=== PATIENT | male | born 1960 ===

== ENCOUNTER 2017-10-03 05:32 | Observation (INO) | payer OTHER ==
[2017-10-03 05:41] VITALS: BMI 27.1
[2017-10-03] MEDS ORDERED: Sodium Chloride 0.9% 1,000 ML IV STA (05:52)
[2017-10-03 05:54] LABS: BASO # 0.01 K/mm3 (0.0-2.0); BASO % 0.1 % (0.0-3.0); EOS # 0.2 (0.0-0.7); GRAN # 6.29 (1.4-6.5); GRAN % 80.5 % (50.0-68.0); HEMOGLOBIN 13.2 g/dL (14.0-18.0); LYMPH # 0.9 (1.2-3.4); MEAN CELL VOLUME 88.5 fl (80.0-105.0); MEAN CORPUSCULAR HEMOGLOBIN 29.9 pg (25.0-35.0); MEAN CORPUSCULAR HGB CONC 33.8 g/dl (31.0-37.0); MEAN PLATELET VOLUME 9.2 fl (7.0-11.0); MONO # 0.5 (0.1-0.6); MONO % 6.4 % (1.0-6.0); RBC 4.42 10^6/uL (3.5-6.1); WHITE BLOOD COUNT 7.8 10^3/ul (4.5-11.0)
[2017-10-03 06:05] LABS: ALB/GLOB RATIO 1.6 (1.1-1.8); ALBUMIN 4.6 g/dL (3.0-4.8); ALT/SGPT 66 U/L (7-56); AST/SGOT 35 U/L (17-59); BLOOD UREA NITROGEN 12 mg/dL (7-21); CALCIUM 9.9 mg/dL (8.4-10.5); GFR AFRICAN-AMERICAN > 60; GFR NON-AFRICAN AMERICAN > 60
[2017-10-03 06:07] LABS: INR 0.97 (0.93-1.08); PROTHROMBIN TIME 11.1 SECONDS (9.4-12.5)
[2017-10-03 06:08] LABS: PARTIAL THROMBOPLASTIN TIME 27.8 Seconds (25.1-36.5)
--- NOTE | 2017-10-03 06:17 | ED PDOC ---
Arrival/HPI - General Chief Complaint: Chest Pain Time Seen by Provider: 10/03/17 05:45 Historian: Patient, Other (significant other) - History of Present Illness Narrative History of Present Illness (Text): 57yoM, with left sided chest pain, going down arm, woke him up, w associated headache, but no n/v/dizziness/sob/abdomen pain/numbness/tingling/loss of limb function/travel/prior blood clots/prior cancer history/drug use. 10/03/17 06:14 Time/Duration: 4-6 hours Symptom Onset: Sudden Symptom Course: Unchanged Quality: Aching Activities at Onset: Rest Context: Sitting Past Medical History - Provider Review Nursing Documentation Reviewed: Yes - Travel History Have you recently traveled outside [place] w/in the past 3 mons?: No - Infectious Disease Hx of Infectious Diseases: None - Tetanus Immunization Tetanus Immunization: Unknown - Cardiac Hx Cardiac Disorders: Yes Hx Hypertension: Yes - Pulmonary Hx Respiratory Disorders: No - Neurological Hx Neurological Disorder: No - HEENT Hx HEENT Disorder: No - Renal Hx Renal Disorder: No - Endocrine/Metabolic Hx Endocrine Disorders: No - Hematological/Oncological Hx Blood Disorders: No - Integumentary Hx Dermatological Disorder: No - Musculoskeletal/Rheumatological Hx Musculoskeletal Disorders: No Hx Falls: No - Gastrointestinal Hx Gastrointestinal Disorders: No - Genitourinary/Gynecological Hx Genitourinary Disorders: No - Psychiatric Hx Psychophysiologic Disorder: No Hx Substance Use: No - Surgical History Hx Appendectomy: Yes Other/Comment: vasectomy - Anesthesia Hx Anesthesia Reactions: No Hx Malignant Hyperthermia: No - Suicidal Assessment Feels Threatened In Home Enviroment: No Family/Social History - Physician Review Nursing Documentation Reviewed: Yes Family/Social History: No Known Family HX Smoking Status: Heavy Smoker > 10 Cigarettes Daily Hx Alcohol Use: No Hx Substance Use: No Hx Substance Use Treatment: No Allergies/Home Meds Allergies/Adverse Reactions: Allergies No Known Allergies Allergy (Verified 11/27/15 11:23) Home Medications: Home Meds Medication Instructions Recorded Confirmed Benazepril HCl [Lotensin] 40 mg PO DAILY 04/28/14 10/03/17 Hydrochlorothiazide [HCTZ] 12.5 mg PO DAILY 11/27/15 10/03/17 amLODIPine [Norvasc] 10 mg PO DAILY 11/27/15 10/03/17 Review of Systems - Review of Systems Constitutional: Normal Eyes: Normal ENT: Normal Respiratory: Normal Cardiovascular: Chest Pain Gastrointestinal: Normal Genitourinary Male: Normal Musculoskeletal: Normal Skin: Normal Neurological: Headache Endocrine: Normal Hemo/Lymphatic: Normal Psychiatric: Normal Physical Exam Vital Signs Reviewed: Yes Vital Signs Temp Pulse Resp BP Pulse Ox 10/03/17 07:13 89 12 149/87 95 10/03/17 06:12 100.7 F H 10/03/17 05:43 100.7 F H 10/03/17 05:38 92 H 16 148/103 H 95 Temperature: Febrile Blood Pressure: Hypertensive Pulse: Regular Respiratory Rate: Normal Appearance: Positive for: Uncomfortable Pain Distress: None Mental Status: Positive for: Alert and Oriented X 3 - Systems Exam Head: Present: Atraumatic, Normocephalic Pupils: Present: PERRL Extroacular Muscles: Present: EOMI Conjunctiva: Present: Normal Ears: Present: Normal Mouth: Present: Moist Mucous Membranes Pharnyx: Present: Normal Nose (External): Present: Atraumatic Nose (Internal): Present: Normal Inspection Neck: Present: Normal Range of Motion Respiratory/Chest: Present: Clear to Auscultation, Good Air Exchange Cardiovascular: Present: Regular Rate and Rhythm Abdomen: No: Tenderness, Distention, Normal Bowel Sounds, Peritoneal Signs, Rebound, Guarding, McBurney's Point Tender, Rovsing's Sign Present, Hernias, Feeding Tubes, Ostomy Tubes, Mass/Organomegaly, Scars, Other Back: Present: Normal Inspection Upper Extremity: Present: Normal Inspection Lower Extremity: Present: Normal Inspection Neurological: Present: GCS=15, CN II-XII Intact, Speech Normal, Motor Func Grossly Intact Skin: Present: Warm, Normal Color Psychiatric: Present: Alert, Oriented x 3, Normal Insight, Normal Concentration Medical Decision Making ED Course and Treatment: 57yoM, with left sided chest pain, going down arm, woke him up, w associated headache, but no n/v/dizziness/sob/abdomen pain/numbness/tingling/loss of limb function/travel/prior blood clots/prior cancer history/drug use. Trop 0.02 CXR no acute 10/03/17 06:16 10/03/17 06:29 10/03/17 07:15 aspirin 243 given with improvement. 100.7 temp tylenol given. ivf pt gave errant PMD in computer. signed out to Dr. Quintero to fu with hospitalist regarding observation/ admission for chest pain rule out. - Lab Interpretations Lab Results: 10/03/17 05:35 10/03/17 05:35 Lab Results 10/03/17 06:00: Influenza Typ A,B (EIA) Negative for flu a/b 10/03/17 05:35: Sodium 141, Potassium 4.0, Chloride 103, Carbon Dioxide 24, Anion Gap 18, BUN 12, Creatinine 0.8, Est GFR ( Amer) > 60, Est GFR (Non- Af Amer) > 60, Random Glucose 106, Calcium 9.9, Total Bilirubin 0.3, AST 35, ALT 66 H, Alkaline Phosphatase 61, Lactate Dehydrogenase 376, Total Creatine Kinase 135, Troponin I 0.02 D, Total Protein 7.4, Albumin 4.6, Globulin 2.9, Albumin/Globulin Ratio 1.6 10/03/17 05:35: PT 11.1, INR 0.97, APTT 27.8 10/03/17 05:35: WBC 7.8 D, RBC 4.42, Hgb 13.2 L, Hct 39.1 L, MCV 88.5, MCH 29.9 , MCHC 33.8, RDW 15.0 H, Plt Count 242, MPV 9.2, Gran % 80.5 H, Lymph % (Auto) 11.0 L, [place] % (Auto) 6.4 H, Eos % (Auto) 2.0, Baso % (Auto) 0.1, Gran # 6.29, Lymph # (Auto) 0.9 L, [place] # (Auto) 0.5, Eos # (Auto) 0.2, Baso # (Auto) 0.01 I have reviewed the lab results: Yes - RAD Interpretation Radiology Orders: 10/03/17 05:43 CHEST PORTABLE [RAD] Stat Nude Model: ED Physician (CXR mild vascular markings) - EKG Interpretation Interpreted by ED Physician: Yes (sinus tachycardia) Type: 12 lead EKG - Medication Orders Current Medication Orders: Discontinued Medications Acetaminophen (Tylenol 325mg Tab) 975 mg PO STAT STA Stop: 10/03/17 05:53 Last Admin: 10/03/17 06:12 Dose: 975 mg MAR Pain/Vitals Document 10/03/17 06:12 SRINIVAS (Rec: 10/03/17 06:13 GUTHRIE [id number]) Pain Reassessment Is This A Pain ReAssessment? No Sleep Is patient sleeping during reassessment? No Presence of Pain Presence of Pain Yes Pain Scale Used Pain Scale Used Numeric Location Left, Right or Bilateral Right Upper or Lower Upper Pain Location Body Site Arm Intensity 5 Vitals Temperature (97.6 F-99.6 F) 100.7 F Temperature Source Oral Aspirin (Aspirin Chewable) 243 mg PO STAT STA Stop: 10/03/17 05:52 Last Admin: 10/03/17 06:13 Dose: 243 mg Sodium Chloride (Sodium Chloride 0.9%) 1,000 mls @ 999 mls/hr IV .Q1H1M STA Stop: 10/03/17 06:52 Last Admin: 10/03/17 06:12 Dose: 999 mls/hr eMAR Start Stop Document 10/03/17 06:12 ROMANA (Rec: 10/03/17 06:12 [facility] [id number]) Intravenous Solution Start Date 10/03/17 Start Time 06:12 End Date 10/03/17 End time 07:12 Total Infusion Time 60 Disposition/Present on Arrival - Present on Arrival History of DVT/PE: No History of Uncontrolled Diabetes: No Urinary Catheter: No History of Decub. Ulcer: No History Surgical Site Infection Following: None - Disposition Forms: [employer] (Swedish)
[2017-10-03 06:18] LABS: TROPONIN I 0.02 ng/mL
--- NOTE | 2017-10-03 08:04 | ED PDOC ---
Physical Exam Vital Signs Temp Pulse Resp BP Pulse Ox 10/03/17 07:13 89 12 149/87 95 10/03/17 06:12 100.7 F H 10/03/17 05:43 100.7 F H 10/03/17 05:38 92 H 16 148/103 H 95 Medical Decision Making ED Course and Treatment: 10/03/17 07:00 Case signed out to me by Dr. Abreu. Patient is a 57 year old male, whose PMH include hypertensio who presents to the emergency department complaining of chest pain since last night at 2AM that radiates to the left arm. Labs were normal, but patient is febrile. The plan is to admit patient. 10/03/17 08:[address] Norman who will admit patient under his care to Telemetry for chest pain r/o. - Lab Interpretations Lab Results: 10/03/17 05:35 10/03/17 05:35 Lab Results 10/03/17 06:00: Influenza Typ A,B (EIA) Negative for flu a/b 10/03/17 05:35: Sodium 141, Potassium 4.0, Chloride 103, Carbon Dioxide 24, Anion Gap 18, BUN 12, Creatinine 0.8, Est GFR ( Amer) > 60, Est GFR (Non- Af Amer) > 60, Random Glucose 106, Calcium 9.9, Total Bilirubin 0.3, AST 35, ALT 66 H, Alkaline Phosphatase 61, Lactate Dehydrogenase 376, Total Creatine Kinase 135, Troponin I 0.02 D, Total Protein 7.4, Albumin 4.6, Globulin 2.9, Albumin/Globulin Ratio 1.6 10/03/17 05:35: PT 11.1, INR 0.97, APTT 27.8 10/03/17 05:35: WBC 7.8 D, RBC 4.42, Hgb 13.2 L, Hct 39.1 L, MCV 88.5, MCH 29.9 , MCHC 33.8, RDW 15.0 H, Plt Count 242, MPV 9.2, Gran % 80.5 H, Lymph % (Auto) 11.0 L, [place] % (Auto) 6.4 H, Eos % (Auto) 2.0, Baso % (Auto) 0.1, Gran # 6.29, Lymph # (Auto) 0.9 L, [place] # (Auto) 0.5, Eos # (Auto) 0.2, Baso # (Auto) 0.01 - RAD Interpretation Radiology Orders: 10/03/17 05:43 CHEST PORTABLE [RAD] Stat - Medication Orders Current Medication Orders: Discontinued Medications Acetaminophen (Tylenol 325mg Tab) 975 mg PO STAT STA Stop: 10/03/17 05:53 Last Admin: 10/03/17 06:12 Dose: 975 mg MAR Pain/Vitals Document 10/03/17 06:12 JOL (Rec: 10/03/17 06:13 JOL [id number]) Pain Reassessment Is This A Pain ReAssessment? No Sleep Is patient sleeping during reassessment? No Presence of Pain Presence of Pain Yes Pain Scale Used Pain Scale Used Numeric Location Left, Right or Bilateral Right Upper or Lower Upper Pain Location Body Site Arm Intensity 5 Vitals Temperature (97.6 F-99.6 F) 100.7 F Temperature Source Oral Aspirin (Aspirin Chewable) 243 mg PO STAT STA Stop: 10/03/17 05:52 Last Admin: 10/03/17 06:13 Dose: 243 mg Sodium Chloride (Sodium Chloride 0.9%) 1,000 mls @ 999 mls/hr IV .Q1H1M STA Stop: 10/03/17 06:52 Last Admin: 10/03/17 06:12 Dose: 999 mls/hr eMAR Start Stop Document 10/03/17 06:12 JOL (Rec: 10/03/17 06:12 JOL [id number]) Intravenous Solution Start Date 10/03/17 Start Time 06:12 End Date 10/03/17 End time 07:12 Total Infusion Time 60 - Scribe Statement The provider has reviewed the documentation as recorded by the Serg Tamez Provider Scribe Attestation: All medical record entries made by the Scribe were at my direction and personally dictated by me. I have reviewed the chart and agree that the record accurately reflects my personal performance of the history, physical exam, medical decision making, and the department course for this patient. I have also personally directed, reviewed, and agree with the discharge instructions and disposition. Disposition/Present on Arrival - Present on Arrival Any Indicators Present on Arrival: No History of DVT/PE: No History of Uncontrolled Diabetes: No Urinary Catheter: No History of Decub. Ulcer: No History Surgical Site Infection Following: None - Disposition Have Diagnosis and Disposition been Completed?: Yes Diagnosis: Chest pain Disposition: HOSPITALIZED Disposition Time: 07:50 Patient Plan: Observation, Telemetry Condition: FAIR Discharge Instructions (ExitCare): Chest Pain (ED) Referrals: Sowmya Beebe MD [Primary Care Provider] - Follow up with primary Forms: [employer] (Austrian)
--- NOTE | 2017-10-03 09:56 | RAD ---
HISTORY: CHEST PAIN COMPARISON: 11/27/2015 FINDINGS: LUNGS: No active pulmonary disease. PLEURA: No significant pleural effusion identified, no pneumothorax apparent. CARDIOVASCULAR: No radiographic findings to suggest acute or significant cardiovascular disease. OSSEOUS STRUCTURES: No significant abnormalities. VISUALIZED UPPER ABDOMEN: Normal. OTHER FINDINGS: None. IMPRESSION: No active disease. No significant interval change compared to the prior examination(s).
[2017-10-03 10:18] LABS: PH,URINE 7.5 (4.7-8.0); URINE BILIRUBIN NEGATIVE (NEGATIVE); URINE BLOOD SMALL (NEGATIVE); URINE GLUCOSE (UA) NEGATIVE (NEGATIVE); URINE LEUKOCYTE ESTERASE NEGATIVE Leu/uL (NEGATIVE); URINE NITRATE NEGATIVE (NEGATIVE); URINE PROTEIN NEGATIVE mg/dL (<30 mg/dL); URINE UROBILINOGEN 0.2 E.U./dL (<1 E.U./dL)
[2017-10-03] MEDS: levoFLOXacin 500 mg in D5W 500 MG/100 ML BAG IVPB SCH (10:20)
[2017-10-03 10:22] LABS: HDL CHOLESTEROL 51 mg/dL (29-60)
[2017-10-03 10:26] LABS: URINE APPEARANCE CLEAR (CLEAR); URINE COLOR YELLOW (YELLOW)
[2017-10-03 10:30] LABS: BARBITURATES, UR NEGATIVE (NEGATIVE); BENZODIAZEPINES, UR NEGATIVE (NEGATIVE); OPIATES, UR NEGATIVE (NEGATIVE); PHENCYCLIDINE, UR NEGATIVE (NEGATIVE)
[2017-10-03 10:36] LABS: LDL CHOLESTEROL 94 mg/dL (0-129)
[2017-10-03 10:41] LABS: URINE WBC 0 - 2 /hpf (0-6)
[2017-10-03 10:42] LABS: URINE BACTERIA FEW (NEG)
[2017-10-03] MEDS: Albuterol-Ipratrop 3 mg / 0.5 (3 ml) UD IH SCH (14:00)
--- NOTE | 2017-10-03 16:41 | CARD ---
APPROVED REPORT EKG Measurement Heart [id number] <Conclusion> Sinus tachycardia Possible Left atrial enlargement Borderline ECG
[2017-10-03] MEDS ORDERED: Pantoprazole 40 mg EC Tab PO STA (21:15)
[2017-10-03] MEDS ORDERED: Pneumococcal 23-Valent Vaccine IM ONE (21:35)
[2017-10-03] MEDS ORDERED: Influenza Vaccine 60 mcg/0.5 mL SYR (4YR UP) IM ONE (21:35)
--- NOTE | 2017-10-04 02:09 | CON ---
DATE: CARDIOLOGY CONSULTATION REASON FOR CONSULTATION: Chest pain. HISTORY OF PRESENT ILLNESS: The patient is a 57-year-old male, who has a history of hypertension. He is a former smoker, who quit about 4 months ago. He smoked 10 cigarettes a day. He presents because of retrosternal chest heaviness radiating to the left arm and to the left jaw. The patient is unaware of any prior cardiac history except for history of hypertension and underwent a stress test many years ago that was unremarkable. At this time, the patient is chest pain free. MEDICATIONS: Aspirin 81 mg once a day, Levaquin 500 mg intravenously daily, hydrochlorothiazide 12.5 mg once a day, Norvasc 10 mg once a day, Protonix 40 mg once a day, Zestril 40 mg once a day. REVIEW OF SYSTEMS: No fever or chills. No vomiting or diarrhea. No dizziness or syncope. PHYSICAL EXAMINATION: GENERAL: The patient is a middle-aged male, who does not appear to be in any distress. VITAL SIGNS: Blood pressure 132/92, heart rate 81, temperature 100.7 initially. HEENT: Normocephalic. NECK: No JVD. CHEST: Clear. HEART: S1, S2, regular. ABDOMEN: Soft. EXTREMITIES: No edema. No calf tenderness. LABORATORY DATA: Hemoglobin and hematocrit 16.1 and 39.1, white count and platelet counts are within normal limit. SMA-7: Sodium 141, potassium 4, chloride 106, CO2 of 24, glucose 106, BUN 12, creatinine 0.8. Two sets of troponin are in the indeterminate range. Lipid profile is within normal limit. PT, PTT and D-dimer are within normal limits. Urine drug screen is negative. EKG reveal normal sinus rhythm, left atrial enlargement. ASSESSMENT: 1. Chest pain, rule out myocardial infarction. 2. Hypertension. 3. Low-grade fever. chest x-ray was unremarkable. RECOMMENDATIONS: Continue current aspirin 81 mg once a day, hydrochlorothiazide 12.5 mg daily, Norvasc 10 mg once a day, Zestril at 40 mg once a day. Obtain an echocardiograph study and consider blood culture. Jacinto Betancourt MD
[2017-10-04] MEDS: Albuterol-Ipratrop 3 mg / 0.5 (3 ml) UD IH SCH ×5 (04:00→21:11)
[2017-10-04] MEDS: Pantoprazole 40 mg EC Tab PO SCH (05:23)
[2017-10-04 07:33] LABS: BASO # 0.01 K/mm3 (0.0-2.0); BASO % 0.2 % (0.0-3.0); EOS # 0.2 (0.0-0.7); EOS % 4.6 % (1.5-5.0); GRAN # 3.56 (1.4-6.5); GRAN % 67.6 % (50.0-68.0); HEMOGLOBIN 12.3 g/dL (14.0-18.0); LYMPH # 0.8 (1.2-3.4); MEAN CELL VOLUME 87.9 fl (80.0-105.0); MEAN CORPUSCULAR HEMOGLOBIN 29.2 pg (25.0-35.0); MEAN CORPUSCULAR HGB CONC 33.2 g/dl (31.0-37.0); MEAN PLATELET VOLUME 9.2 fl (7.0-11.0); MONO # 0.6 (0.1-0.6); MONO % 11.6 % (1.0-6.0); RBC 4.21 10^6/uL (3.5-6.1); WHITE BLOOD COUNT 5.3 10^3/ul (4.5-11.0)
[2017-10-04 07:39] LABS: ALB/GLOB RATIO 1.4 (1.1-1.8); ALBUMIN 3.9 g/dL (3.0-4.8); ALT/SGPT 65 U/L (7-56); AST/SGOT 33 U/L (17-59); BLOOD UREA NITROGEN 12 mg/dL (7-21); CALCIUM 9.5 mg/dL (8.4-10.5); GFR AFRICAN-AMERICAN > 60; GFR NON-AFRICAN AMERICAN > 60
[2017-10-04] MEDS ORDERED: Potassium Chloride 20 mEq ER Tab PO STA (09:12)
--- NOTE | 2017-10-04 09:26 | CP.PCM.HP ---
<Manav Belcher - Last Filed: 10/04/17 11:57> History of Present Illness - History of Present Illness History of Present Illness: Mr. Efren Hinojosa is a 57 year old male with a past medical history significant for HTN, GERD, tobacco abuse and appendectomy who presents with sharp left sided chest pain that radiates to his left arm and left neck that awoke him from sleep at approximately 0230 this morning. He states that this pain was constant and was rated as a 10/10. He denies any alleviating or aggravating factors. He has had this pain in the past but denies it ever being this severe. Patient endorses that he has been suffering from subjective fevers and nasal congestion for approximately one month and notes that he had an acute worsening of these symptoms last night before he went to bed, for which he denies taking any medications for. Currently, patient reports that his presenting chest pain has resolved and that he only experiences this pain on deep breathing. He denies chills, changes in his vision, sore throat, palpitations, SOB, cough, abdominal pain, N/V/D/C, urinary symptoms, skin changes or any numbness/tingling /weakness of any extremity. 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 Allergies: NKDA Home Medications: As per MAR Present on Admission - Present on Admission Any Indicators Present on Admission: No Review of Systems - Review of Systems Review of Systems: As per HPI, otherwise negative Past Patient History - Infectious Disease Hx of Infectious Diseases: None - Tetanus Immunizations Tetanus Immunization: Unknown - Past Social History Smoking Status: Former Smoker - CARDIAC Hx Cardiac Disorders: Yes Hx Hypertension: Yes - PULMONARY Hx Respiratory Disorders: No - NEUROLOGICAL Hx Neurological Disorder: No - HEENT Hx HEENT Problems: Yes (eyeglasses) - RENAL Hx Chronic Kidney Disease: No - ENDOCRINE/METABOLIC Hx Endocrine Disorders: No - HEMATOLOGICAL/ONCOLOGICAL Hx Blood Disorders: No - INTEGUMENTARY Hx Dermatological Problems: No - MUSCULOSKELETAL/RHEUMATOLOGICAL Hx Falls: No - GASTROINTESTINAL Hx Gastroesophageal Reflux: Yes - GENITOURINARY/GYNECOLOGICAL Hx Genitourinary Disorders: No - PSYCHIATRIC Hx Substance Use: No - SURGICAL HISTORY Hx Appendectomy: Yes (15 yrs ago) Other/Comment: vasectomy, r kidney sx age 1 - ANESTHESIA Hx Anesthesia Reactions: No Hx Malignant Hyperthermia: No Meds Allergies/Adverse Reactions: Allergies Allergy/AdvReac Type Severity Reaction Status Date / Time No Known Allergies Allergy Verified 11/27/15 11:23 Physical Exam - Constitutional Appears: Non-toxic, No Acute Distress - Head Exam Head Exam: ATRAUMATIC, NORMAL INSPECTION, NORMOCEPHALIC - Eye Exam Eye Exam: EOMI, Normal appearance, PERRL - ENT Exam ENT Exam: Mucous Membranes Moist, Normal Exam - Neck Exam Neck exam: Positive for: Full Rom, Normal Inspection. Negative for: Lymphadenopathy - Respiratory Exam Respiratory Exam: Wheezes (Fine; End expiratory; Upper lung clark), NORMAL BREATHING PATTERN. absent: Accessory Muscle Use, Chest Wall Tenderness, Decreased Breath Sounds, Clear to Auscultation Bilateral, Prolonged Expiratory Phase, Rales, Rhonchi, Respiratory Distress, Stridor - Cardiovascular Exam Cardiovascular Exam: REGULAR RHYTHM, RRR, +S1, +S2. absent: Bradycardia, Tachycardia, Clicks, Diastolic murmur, Gallop, Irregular Rhythm, JVD, Rubs, +S4 , Systolic Murmur - GI/Abdominal Exam GI & Abdominal Exam: Normal Bowel Sounds, Soft. absent: Tenderness - Extremities Exam Extremities exam: Positive for: full ROM, normal capillary refill, normal inspection, pedal pulses present. Negative for: calf tenderness, joint swelling , pedal edema, tenderness - Back Exam Back exam: NORMAL INSPECTION - Neurological Exam Neurological exam: Alert, CN II-XII Intact, Normal Gait, Oriented x3, Reflexes Normal - Psychiatric Exam Psychiatric exam: Normal Affect, Normal Mood - Skin Skin Exam: Dry, Intact, Normal Color, Warm Results - Vital Signs Recent Vital Signs: Last Vital Signs Temp 99.5 F 10/04/17 05:59 Pulse 89 10/04/17 06:00 Resp 18 10/04/17 05:59 BP 137/91 H 10/04/17 05:59 Pulse Ox 96 10/04/17 05:59 - Labs Result Diagrams: 10/04/17 07:00 10/04/17 07:00 Labs: Laboratory Results - last 24 hr 10/03/17 10/03/17 10/03/17 09:00 11:30 18:05 WBC RBC Hgb Hct MCV MCH MCHC RDW Plt Count MPV Gran % Lymph % (Auto) [place] % (Auto) Eos % (Auto) Baso % (Auto) Gran # Lymph # (Auto) [place] # (Auto) Eos # (Auto) Baso # (Auto) Sodium Potassium Chloride Carbon Dioxide Anion Gap BUN Creatinine Est GFR ( Amer) Est GFR (Non-Af Amer) Random Glucose Calcium Total Bilirubin AST ALT Alkaline Phosphatase Troponin I 0.01 D 0.02 D Total Protein Albumin Globulin Albumin/Globulin Ratio Procalcitonin 0.06 L 10/04/17 10/04/17 07:00 07:00 WBC 5.3 D RBC 4.21 Hgb 12.3 L Hct 37.0 L MCV 87.9 MCH 29.2 MCHC 33.2 RDW 15.0 H Plt Count 215 MPV 9.2 Gran % 67.6 Lymph % (Auto) 16.0 L [place] % (Auto) 11.6 H Eos % (Auto) 4.6 Baso % (Auto) 0.2 Gran # 3.56 Lymph # (Auto) 0.8 L [place] # (Auto) 0.6 Eos # (Auto) 0.2 Baso # (Auto) 0.01 Sodium 140 Potassium 3.4 L Chloride 104 Carbon Dioxide 25 Anion Gap 14 BUN 12 Creatinine 0.8 Est GFR ( Amer) > 60 Est GFR (Non-Af Amer) > 60 Random Glucose 98 Calcium 9.5 Total Bilirubin 0.2 AST 33 ALT 65 H Alkaline Phosphatase 57 Troponin I Total Protein 6.7 Albumin 3.9 Globulin 2.8 Albumin/Globulin Ratio 1.4 Procalcitonin - EKG Data Rate: Tachycardia (101) Assessment & Plan - Assessment and Plan (Free Text) Assessment: 57 year old male with a past medical history significant for HTN, GERD, tobacco abuse and appendectomy who presents with sharp left sided chest pain that radiates to his left arm and left neck that awoke him from sleep at approximately 0230 this morning Plan: 1. Chest Pain -Chest X-Ray showing no active disease -EKG showing sinus tachycardia and possible LAE -Initial troponin negative with serial troponins pending -D-Dimer negative -UDS negative -Echo pending -Continue ASA -Toradol 15mg IM Q6 PRN for pain control -Heart Healthy Diet -Cardiology consulted, all recommendations appreciated 2. SIRS without suspected source -Noted to have fever and tachycardia without leukocytosis or tachypnea -Chest X-Ray and UA showing no signs of infection -Influenza negative -Levaquin 500mg IVPB QD -Duonebs Q6H and Albuterol INH Q2H PRN -Tylenol PRN for fever 3. History of HTN -Continue home Zestril, Norvasc, and HCTZ GI Prophylaxis: Protonix DVT Prophylaxis: SCD's Patient seen and case discussed with attending, Dr. Norman. - Date & Time Date: 10/03/17 Time: 10:38 Decision To Admit - Pt Status Changed To: Hospital Disposition Of: Observation - . Bed Request Type: Telemetry <Magnolia Norman - Last Filed: 10/04/17 15:14> Results - Vital Signs Recent Vital Signs: Last Vital Signs Temp 98.5 F 10/04/17 12:00 Pulse 85 10/04/17 14:27 Resp 18 10/04/17 12:00 BP 137/51 L 10/04/17 14:27 Pulse Ox 96 10/04/17 05:59 - Labs Result Diagrams: 10/04/17 07:00 10/04/17 07:00 Labs: Laboratory Results - last 24 hr 10/03/17 10/03/17 10/03/17 09:00 09:00 18:05 WBC RBC Hgb Hct MCV MCH MCHC RDW Plt Count MPV Gran % Lymph % (Auto) [place] % (Auto) Eos % (Auto) Baso % (Auto) Gran # Lymph # (Auto) [place] # (Auto) Eos # (Auto) Baso # (Auto) Sodium Potassium Chloride Carbon Dioxide Anion Gap BUN Creatinine Est GFR ( Amer) Est GFR (Non-Af Amer) Random Glucose Hemoglobin A1c 5.9 Calcium Total Bilirubin AST ALT Alkaline Phosphatase Troponin I 0.02 D Total Protein Albumin Globulin Albumin/Globulin Ratio Procalcitonin 0.06 L 10/04/17 10/04/17 07:00 07:00 WBC 5.3 D RBC 4.21 Hgb 12.3 L Hct 37.0 L MCV 87.9 MCH 29.2 MCHC 33.2 RDW 15.0 H Plt Count 215 MPV 9.2 Gran % 67.6 Lymph % (Auto) 16.0 L [place] % (Auto) 11.6 H Eos % (Auto) 4.6 Baso % (Auto) 0.2 Gran # 3.56 Lymph # (Auto) 0.8 L [place] # (Auto) 0.6 Eos # (Auto) 0.2 Baso # (Auto) 0.01 Sodium 140 Potassium 3.4 L Chloride 104 Carbon Dioxide 25 Anion Gap 14 BUN 12 Creatinine 0.8 Est GFR ( Amer) > 60 Est GFR (Non-Af Amer) > 60 Random Glucose 98 Hemoglobin A1c Calcium 9.5 Total Bilirubin 0.2 AST 33 ALT 65 H Alkaline Phosphatase 57 Troponin I Total Protein 6.7 Albumin 3.9 Globulin 2.8 Albumin/Globulin Ratio 1.4 Procalcitonin Attending/Attestation - Attestation I have personally seen and examined this patient.: Yes I have fully participated in the care of the patient.: Yes I have reviewed all pertinent clinical information: Yes Notes (Text): 10/04/17 15:10 Patient was seen and examined with family practice medical doctor. Agreed with assessment and plan. 57 year old male with a past medical history significant for HTN, GERD, is admitted with chest pain.EKG is negative for ischemic changes.We will get serial troponin.We will monitor patient in telemetry.We will get cardiology evaluation. Fever is likely dueto Bronchitis, X ray is negative for Pneumonia.We will check Procalcitonin level.Continue levaquin. Management plan was discussed in detail with patient. Education was provided.
[2017-10-04] MEDS: levoFLOXacin 500 mg in D5W 500 MG/100 ML BAG IVPB SCH (10:13)
[2017-10-04] MEDS ORDERED: Albuterol 0.083% Inhal Sol (2.5 mg/3 mL) UD INH PRN (11:05)
--- NOTE | 2017-10-04 14:37 | CP.PCM.PN ---
<Manav Belcher - Last Filed: 10/04/17 14:33> Subjective - Date & Time of Evaluation Date of Evaluation: 10/04/17 Time of Evaluation: 14:33 - Subjective Subjective: Medicine Progress Note: Patient seen and assessed at bedside. No acute events since admission reported by nursing staff or patient. Patient is without complaints at this time, including fever, chills, headache, chest pain, palpitations, SOB, cough, abdominal pain, N/V/D/C, urinary symptoms, or any numbness/tingling/weakness of any extremity. Objective - Vital Signs/Intake and Output Vital Signs (last 24 hours): Temp Pulse Resp BP Pulse Ox 98.5 F 85 18 137/51 L 96 10/04/17 12:00 10/04/17 14:27 10/04/17 12:00 10/04/17 14:27 10/04/17 05:59 Intake and Output: 10/04/17 10/04/17 06:59 18:59 Intake Total 120 Output Total 0 Balance 120 - Medications Medications: Current Medications Acetaminophen (Tylenol 325mg Tab) 650 mg PO Q6H PRN PRN Reason: Fever >100.4 F Last Admin: 10/04/17 03:15 Dose: 650 mg Albuterol Sulfate (Albuterol 0.083% Inhal Mel (2.5 Mg/3 Ml) Ud) 2.5 mg INH Q2H PRN PRN Reason: Shortness of Breath Last Admin: 10/04/17 11:18 Dose: 2.5 mg Albuterol/Ipratropium (Duoneb 3 Mg/0.5 Mg (3 Ml) Ud) 3 ml IH [id number] [facility] Last Admin: 10/04/17 14:04 Dose: 3 ml Amlodipine Besylate (Norvasc) 10 mg PO DAILY [facility] Last Admin: 10/04/17 10:13 Dose: 10 mg Aspirin (Aspirin Chewable) 81 mg PO DAILY [facility] Last Admin: 10/04/17 10:13 Dose: 81 mg Atenolol (Tenormin) 25 mg PO DAILY [facility] Last Admin: 10/04/17 14:27 Dose: 25 mg Hydrochlorothiazide (Microzide) 12.5 mg PO DAILY [facility] Last Admin: 10/04/17 10:13 Dose: 12.5 mg Levofloxacin/Dextrose (Levaquin 500mg) 500 mg in 100 mls @ 100 mls/hr IVPB DAILY RICHIE PRN Reason: Protocol Last Admin: 10/04/17 10:13 Dose: 100 mls/hr Ketorolac Tromethamine (Toradol) 15 mg IM Q6 PRN PRN Reason: Pain, Mild (1-3) Stop: 10/08/17 18:16 Lisinopril (Zestril) 40 mg PO DAILY [facility] Last Admin: 10/04/17 10:13 Dose: 40 mg Pantoprazole Sodium (Protonix Ec Tab) 40 mg PO 0600 [facility] Last Admin: 10/04/17 05:23 Dose: 40 mg - Labs Labs: 10/04/17 07:00 10/04/17 07:00 PT 11.1 SECONDS (9.4-12.5) 10/03/17 05:35 INR 0.97 (0.93-1.08) 10/03/17 05:35 APTT 27.8 Seconds (25.1-36.5) 10/03/17 05:35 - Constitutional Appears: Non-toxic, No Acute Distress - Head Exam Head Exam: ATRAUMATIC, NORMAL INSPECTION, NORMOCEPHALIC - Eye Exam Eye Exam: EOMI, Normal appearance, PERRL Pupil Exam: NORMAL ACCOMODATION, PERRL - ENT Exam ENT Exam: Mucous Membranes Moist, Normal Exam - Neck Exam Neck Exam: Full ROM, Normal Inspection. absent: Lymphadenopathy - Respiratory Exam Respiratory Exam: Wheezes (Trace; scattered in upper lobe clark), NORMAL BREATHING PATTERN. absent: Clear to Ausculation Bilateral - Cardiovascular Exam Cardiovascular Exam: REGULAR RHYTHM, +S1, +S2. absent: Murmur - GI/Abdominal Exam GI & Abdominal Exam: Soft, Normal Bowel Sounds. absent: Tenderness - Extremities Exam Extremities Exam: Full ROM, Normal Capillary Refill, Normal Inspection. absent : Joint Swelling, Pedal Edema - Back Exam Back Exam: NORMAL INSPECTION - Neurological Exam Neurological Exam: Alert, Awake, CN II-XII Intact, Normal Gait, Oriented x3 - Psychiatric Exam Psychiatric exam: Normal Affect, Normal Mood - Skin Skin Exam: Dry, Intact, Normal Color, Warm Assessment and Plan - Assessment and Plan (Free Text) Assessment: 57 year old male with a past medical history significant for HTN, GERD, tobacco abuse and appendectomy who presents with sharp left sided chest pain that radiates to his left arm and left neck that awoke him from sleep. Serial troponins were negative and patient improving clinically. Plan: 1. Chest Pain -Chest X-Ray showing no active disease -EKG showing sinus tachycardia and possible LAE -Three serial troponins negative -D-Dimer negative -UDS negative -Echo pending, per cardio -Continue ASA -Toradol 15mg IM Q6 PRN for pain control -Heart Healthy Diet -Cardiology consulted, all recommendations appreciated 2. SIRS without suspected source -Patient noted to have tachycardia without fever for 24 hours, leukocytosis or tachypnea -Chest X-Ray and UA showing no signs of infection -Influenza negative -Levaquin 500mg IVPB QD -Duonebs Q6H and Albuterol INH Q2H PRN -Tylenol PRN for fever 3. History of HTN -Continue home Zestril, Norvasc, and HCTZ GI Prophylaxis: Protonix DVT Prophylaxis: SCD's Patient seen and case discussed with attending, Dr. Norman. <Magnolia Norman - Last Filed: 10/04/17 15:18> Objective - Vital Signs/Intake and Output Vital Signs (last 24 hours): Temp Pulse Resp BP Pulse Ox 98.5 F 85 18 137/51 L 96 10/04/17 12:00 10/04/17 14:27 10/04/17 12:00 10/04/17 14:27 10/04/17 05:59 Intake and Output: 10/04/17 10/04/17 06:59 18:59 Intake Total 120 Output Total 0 Balance 120 - Medications Medications: Current Medications Acetaminophen (Tylenol 325mg Tab) 650 mg PO Q6H PRN PRN Reason: Fever >100.4 F Last Admin: 10/04/17 03:15 Dose: 650 mg Albuterol Sulfate (Albuterol 0.083% Inhal Mel (2.5 Mg/3 Ml) Ud) 2.5 mg INH Q2H PRN PRN Reason: Shortness of Breath Last Admin: 10/04/17 11:18 Dose: 2.5 mg Albuterol/Ipratropium (Duoneb 3 Mg/0.5 Mg (3 Ml) Ud) 3 ml IH [id number] RICHIE Last Admin: 10/04/17 14:04 Dose: 3 ml Amlodipine Besylate (Norvasc) 10 mg PO DAILY [facility] Last Admin: 10/04/17 10:13 Dose: 10 mg Aspirin (Aspirin Chewable) 81 mg PO DAILY [facility] Last Admin: 10/04/17 10:13 Dose: 81 mg Atenolol (Tenormin) 25 mg PO DAILY [facility] Last Admin: 10/04/17 14:27 Dose: 25 mg Hydrochlorothiazide (Microzide) 12.5 mg PO DAILY [facility] Last Admin: 10/04/17 10:13 Dose: 12.5 mg Levofloxacin/Dextrose (Levaquin 500mg) 500 mg in 100 mls @ 100 mls/hr IVPB DAILY [facility] PRN Reason: Protocol Last Admin: 10/04/17 10:13 Dose: 100 mls/hr Ketorolac Tromethamine (Toradol) 15 mg IM Q6 PRN PRN Reason: Pain, Mild (1-3) Stop: 10/08/17 18:16 Lisinopril (Zestril) 40 mg PO DAILY [facility] Last Admin: 10/04/17 10:13 Dose: 40 mg Pantoprazole Sodium (Protonix Ec Tab) 40 mg PO 0600 [facility] Last Admin: 10/04/17 05:23 Dose: 40 mg - Labs Labs: 10/04/17 07:00 10/04/17 07:00 PT 11.1 SECONDS (9.4-12.5) 10/03/17 05:35 INR 0.97 (0.93-1.08) 10/03/17 05:35 APTT 27.8 Seconds (25.1-36.5) 10/03/17 05:35 Attending/Attestation - Attestation I have personally seen and examined this patient.: Yes I have fully participated in the care of the patient.: Yes I have reviewed all pertinent clinical information, including history, physical exam and plan: Yes Notes (Text): 10/04/17 15:15 Patient was seen and examined with medical data analyst. Agreed with assessment and plan. 57 year old male with a past medical history significant for HTN, GERD, was admitted with chest pain.EKG is negative for ischemic changes.Serial troponin are normal.Patient was evaluated by cardiology and is aaiting for 2D echo, if no significant abnormality Echo, can be discharged home and will have out patient stress test.Case was discussed with cardiology . Fever is likely due to viral Bronchitis, X ray is negative for Pneumonia.Procalcitonin level is normal.Patient is feeling better, on PRB for mild wheezing. Management plan was discussed in detail with patient. Education was provided.
--- NOTE | 2017-10-04 19:45 | PN ---
DATE: CARDIOLOGY FOLLOWUP SUBJECTIVE: Patient denies any chest pain. He complains of shortness of breath. PHYSICAL EXAMINATION VITAL SIGNS: Blood pressure 140/89, heart rate 94, temperature 98.5, respirations 18. HEENT: Normocephalic. NECK: No JVD. CHEST: Clear. HEART: Sounds are regular. ABDOMEN: Soft. EXTREMITIES: No edema. LABORATORY DATA: Today's hemoglobin and hematocrit 12.3 and . White count and platelet count are within normal limit. Today's SMA-7 is within normal limits, except for potassium 3.4. Three sets of troponins are in indeterminate range. Urine drug screen is negative. Influenza type A and B serology is negative. Today's EKG reveal normal sinus rhythm. ASSESSMENT: 1. Atypical chest pain. 2. Uncontrolled hypertension. 3. Shortness of breath. RECOMMENDATIONS: Continue aspirin 81 mg once a day, Levaquin 500 mg daily, hydrochlorothiazide 12.5 mg once a day, Norvasc 10 mg once a day, Zestril 40 mg once a day. Start atenolol 25 mg once a day. Case was discussed with Dr. Norman. I will follow up the echocardiographic study scheduled to be done tomorrow. Jacinto Betancourt MD
--- NOTE | 2017-10-04 21:03 | CARD ---
APPROVED REPORT EKG Measurement Heart [id number] MA [id number] <Conclusion> Normal sinus rhythm Normal ECG
[2017-10-05] MEDS: Albuterol-Ipratrop 3 mg / 0.5 (3 ml) UD IH SCH ×4 (00:59→13:41)
[2017-10-05] MEDS: Pantoprazole 40 mg EC Tab PO SCH (05:19)
[2017-10-05 09:27] LABS: BASO # 0.01 K/mm3 (0.0-2.0); BASO % 0.2 % (0.0-3.0); EOS # 0.3 (0.0-0.7); EOS % 6.3 % (1.5-5.0); GRAN # 2.24 (1.4-6.5); GRAN % 50.7 % (50.0-68.0); HEMOGLOBIN 12.5 g/dL (14.0-18.0); LYMPH # 1.3 (1.2-3.4); LYMPH % 28.4 % (22.0-35.0); MEAN CELL VOLUME 88.4 fl (80.0-105.0); MEAN CORPUSCULAR HEMOGLOBIN 29.7 pg (25.0-35.0); MEAN CORPUSCULAR HGB CONC 33.6 g/dl (31.0-37.0); MONO # 0.6 (0.1-0.6); MONO % 14.4 % (1.0-6.0); RBC 4.21 10^6/uL (3.5-6.1); RED CELL DISTRIBUTION WIDTH 15.2 % (11.5-14.5); WHITE BLOOD COUNT 4.4 10^3/ul (4.5-11.0)
[2017-10-05 09:51] LABS: ALB/GLOB RATIO 1.4 (1.1-1.8); ALT/SGPT 53 U/L (7-56); AST/SGOT 25 U/L (17-59); BLOOD UREA NITROGEN 17 mg/dL (7-21); CALCIUM 9.5 mg/dL (8.4-10.5); GFR AFRICAN-AMERICAN > 60; GFR NON-AFRICAN AMERICAN > 60
[2017-10-05] MEDS ORDERED: levoFLOXacin 500 MG TAB PO SCH (10:00)
[2017-10-05 10:30] VITALS: BP 135/98
[2017-10-05 12:27] VITALS: RESP 18; TEMP 98.4; O2SAT 99
--- NOTE | 2017-10-05 15:56 | RAD ---
HISTORY: COMPARISON: 10/05/2017 TECHNIQUE: Chest PA and lateral FINDINGS: LINES AND TUBES: None. LUNG AND PLEURA: The lungs are well inflated and clear. HEART AND MEDIASTINUM: The heart is not enlarged. The hilar and mediastinal contours are within normal limits. SKELETAL STRUCTURES: The bony structures are within normal limits for the patient's age. VISUALIZED UPPER ABDOMEN: Normal. OTHER FINDINGS: None. IMPRESSION: No active pulmonary disease.
[2017-10-05 16:40] VITALS: PULSE 63
--- NOTE | 2017-10-05 16:47 | PN ---
DATE: SUBJECTIVE: The patient is mildly short of breath, but not wheezing. No chest pain. PHYSICAL EXAMINATION: VITAL SIGNS: Blood pressure 135/98, heart rate 78, temperature 98.4, and respirations 18. HEENT: Normocephalic. CHEST: Minimal rhonchi. HEART: S1 and S2, regular. ABDOMEN: Soft. EXTREMITIES: No edema. ASSESSMENT: 1. Chest pain, myocardial infarction ruled out. 2. Uncontrolled hypertension. 3. Rule out underlying pneumonia. RECOMMENDATIONS: Continue current albuterol inhaler, aspirin 81 mg once a day, hydrochlorothiazide 12.5 mg once a day, Norvasc 10 mg once a day, Tenormin 25 mg daily, Zestril 40 mg daily. Start clonidine at 0.1 mg b.i.d. Obtain chest x-ray. I will review the echocardiographic study performed today. Jacinto Betancourt MD
--- NOTE | 2017-10-05 18:23 | CP.PCM.DIS ---
<Manav Belcher - Last Filed: 10/05/17 18:17> Provider - Provider Date of Admission: 10/03/17 07:50 Attending physician: Ashlyn Ruvalcaba MD Primary care physician: Sowmya Beebe MD Consults: Cardio: Serafin Time Spent in preparation of Discharge (in minutes): 43 Hospital Course - Lab Results Lab Results: Micro Results 10/03/17 11:30 Blood Blood Culture - Preliminary NO GROWTH AFTER 48 HOURS Most Recent Lab Values WBC 4.4 10^3/ul (4.5-11.0) L 10/05/17 09:10 RBC 4.21 10^6/uL (3.5-6.1) 10/05/17 09:10 Hgb 12.5 g/dL (14.0-18.0) L 10/05/17 09:10 Hct 37.2 % (42.0-52.0) L 10/05/17 09:10 MCV 88.4 fl (80.0-105.0) 10/05/17 09:10 MCH 29.7 pg (25.0-35.0) 10/05/17 09:10 MCHC 33.6 g/dl (31.0-37.0) 10/05/17 09:10 RDW 15.2 % (11.5-14.5) H 10/05/17 09:10 Plt Count 216 10^3/uL (120.0-450.0) 10/05/17 09:10 MPV 9.0 fl (7.0-11.0) 10/05/17 09:10 Gran % 50.7 % (50.0-68.0) 10/05/17 09:10 Lymph % (Auto) 28.4 % (22.0-35.0) 10/05/17 09:10 Morris % (Auto) 14.4 % (1.0-6.0) H 10/05/17 09:10 Eos % (Auto) 6.3 % (1.5-5.0) H 10/05/17 09:10 Baso % (Auto) 0.2 % (0.0-3.0) 10/05/17 09:10 Gran # 2.24 (1.4-6.5) 10/05/17 09:10 Lymph # (Auto) 1.3 (1.2-3.4) 10/05/17 09:10 Morris # (Auto) 0.6 (0.1-0.6) 10/05/17 09:10 Eos # (Auto) 0.3 (0.0-0.7) 10/05/17 09:10 Baso # (Auto) 0.01 K/mm3 (0.0-2.0) 10/05/17 09:10 PT 11.1 SECONDS (9.4-12.5) 10/03/17 05:35 INR 0.97 (0.93-1.08) 10/03/17 05:35 APTT 27.8 Seconds (25.1-36.5) 10/03/17 05:35 D-Dimer, Quantitative 230 ng/mL (0-243) 10/03/17 05:30 Sodium 144 mmol/L (132-148) 10/05/17 09:10 Potassium 3.9 mmol/L (3.6-5.0) 10/05/17 09:10 Chloride 106 mmol/L (98-107) 10/05/17 09:10 Carbon Dioxide 24 mmol/L (21-33) 10/05/17 09:10 Anion Gap 18 (10-20) 10/05/17 09:10 BUN 17 mg/dL (7-21) 10/05/17 09:10 Creatinine 0.8 mg/dl (0.8-1.5) 10/05/17 09:10 Est GFR ( Amer) > 60 10/05/17 09:10 Est GFR (Non-Af Amer) > 60 10/05/17 09:10 Random Glucose 100 mg/dL (70-110) 10/05/17 09:10 Hemoglobin A1c 5.9 % (4.2-6.5) 10/03/17 09:00 Calcium 9.5 mg/dL (8.4-10.5) 10/05/17 09:10 Total Bilirubin 0.2 mg/dL (0.2-1.3) 10/05/17 09:10 AST 25 U/L (17-59) 10/05/17 09:10 ALT 53 U/L (7-56) 10/05/17 09:10 Alkaline Phosphatase 48 U/L (38-126) 10/05/17 09:10 Lactate Dehydrogenase 376 U/L (333-699) 10/03/17 05:35 Total Creatine Kinase 135 U/L (35-230) 10/03/17 05:35 Troponin I 0.02 ng/mL D 10/03/17 18:05 Total Protein 6.9 g/dL (5.8-8.3) 10/05/17 09:10 Albumin 4.0 g/dL (3.0-4.8) 10/05/17 09:10 Globulin 2.9 gm/dL 10/05/17 09:10 Albumin/Globulin Ratio 1.4 (1.1-1.8) 10/05/17 09:10 Triglycerides 58 mg/dL (35-160) 10/03/17 05:30 Cholesterol 171 mg/dL (130-200) 10/03/17 05:30 LDL Cholesterol Direct 94 mg/dL (0-129) 10/03/17 05:30 HDL Cholesterol 51 mg/dL (29-60) 10/03/17 05:30 Procalcitonin 0.06 NG/ML (0.19-0.49) L 10/03/17 09:00 Urine Color Yellow (YELLOW) 10/03/17 05:30 Urine Appearance Clear (CLEAR) 10/03/17 05:30 Urine pH 7.5 (4.7-8.0) 10/03/17 05:30 Ur Specific [place] 1.015 (1.005-1.035) 10/03/17 05:30 Urine Protein Negative mg/dL (<30 mg/dL) 10/03/17 05:30 Urine Glucose (UA) Negative mg/dL (NEGATIVE) 10/03/17 05:30 Urine Ketones Negative mg/dL (NEGATIVE) 10/03/17 05:30 Urine Blood Small (NEGATIVE) H 10/03/17 05:30 Urine Nitrate Negative (NEGATIVE) 10/03/17 05:30 Urine Bilirubin Negative (NEGATIVE) 10/03/17 05:30 Urine Urobilinogen 0.2 E.U./dL (<1 E.U./dL) 10/03/17 05:30 Ur Leukocyte Esterase Negative Shreyas/uL (NEGATIVE) 10/03/17 05:30 Urine RBC 2 - 5 /hpf (0-2) 10/03/17 05:30 Urine WBC 0 - 2 /hpf (0-6) 10/03/17 05:30 Ur Epithelial Cells 1 - 3 /hpf (0-5) 10/03/17 05:30 Urine Bacteria Few (NEG) 10/03/17 05:30 Urine Opiates Screen Negative (NEGATIVE) 10/03/17 05:30 Urine Methadone Screen Negative (NEGATIVE) 10/03/17 05:30 Ur Barbiturates Screen Negative (NEGATIVE) 10/03/17 05:30 Ur Phencyclidine Scrn Negative (NEGATIVE) 10/03/17 05:30 Ur Amphetamines Screen Negative (NEGATIVE) 10/03/17 05:30 U Benzodiazepines Scrn Negative (NEGATIVE) 10/03/17 05:30 U Oth Cocaine Metabols Negative (NEGATIVE) 10/03/17 05:30 U Cannabinoids Screen Negative (NEGATIVE) 10/03/17 05:30 Influenza Typ A,B (EIA) Negative for flu a/b (NEGATIVE) 10/03/17 06:00 - Hospital Course Hospital Course: 57 year old male with a past medical history significant for HTN, GERD, tobacco abuse and appendectomy who presents with sharp left sided chest pain that radiates to his left arm and left neck that awoke him from sleep. A Chest X-Ray was done and showed no active disease and an EKG was done and showed sinus tachycardia and possible LAE in ED. A D-Dimer and UDS was negative. Three serial troponins were ordered and found to be negative. Cardiology was consulted and recommended echo. This was done with report still pending. Patient was started on ASA, Zestril, Norvasc, Atenolol and HCTZ. Patient also complained of flu-like symptoms for weeks prior to admission. Patient had a few episodes of fever. He was started on Levaquin and found to be influenza negative. Duonebs and albuterol were started. Tylenol PRN was ordered for fever. Toradol was started for pain control. Protonix and SCD's were started for prophylaxis. Patient remained afebrile, had negative repeat chest x-ray and EKG and was HDS for over 24 hours and then discharged on 10/05/17 with prescriptions for albuterol, zithromax and atenolol and told to resume home medications. - Date & Time of H&P Date of H&P: 10/03/17 Time of H&P: 10:38 Discharge Exam - Head Exam Head Exam: ATRAUMATIC, NORMAL INSPECTION, NORMOCEPHALIC - Eye Exam Eye Exam: EOMI, Normal appearance, PERRL - Respiratory Exam Respiratory Exam: Clear to PA & Lateral, NORMAL BREATHING PATTERN, UNREMARKABLE - Cardiovascular Exam Cardiovascular Exam: REGULAR RHYTHM, RRR, +S1, +S2 - GI/Abdominal Exam GI & Abdominal Exam: Normal Bowel Sounds, Unremarkable - Extremities Exam Extremities exam: full ROM, normal capillary refill, normal inspection, pedal pulses present - Neurological Exam Neurological exam: Alert, CN II-XII Intact, Normal Gait, Oriented x3 - Psychiatric Exam Psychiatric exam: Normal Affect, Normal Mood - Skin Skin Exam: Dry, Intact, Normal Color, Warm Discharge Plan - Discharge Medications Prescriptions: Albuterol HFA [Ventolin HFA 90 mcg/actuation (8 g)] 1 puff IH Q6 PRN #1 puff PRN Reason: Wheezing Atenolol [Tenormin] 25 mg PO DAILY #30 tab Azithromycin 500 mg PO DAILY #3 tablet predniSONE [predniSONE Tab] 40 mg PO DAILY #5 tab - Follow Up Plan Condition: FAIR Disposition: HOME/ ROUTINE Instructions: Chest Pain (DC), Chest Pain (GEN) Referrals: Sowmya Beebe MD [Primary Care Provider] - <Ashlyn Ruvalcaba - Last Filed: 10/06/17 07:40> Provider - Provider Date of Admission: 10/03/17 07:50 Attending physician: Ashlyn Ruvalcaba MD Primary care physician: Sowmya Beebe MD Hospital Course - Lab Results Lab Results: Micro Results 10/03/17 11:30 Blood Blood Culture - Preliminary NO GROWTH AFTER 48 HOURS Most Recent Lab Values WBC 4.4 10^3/ul (4.5-11.0) L 10/05/17 09:10 RBC 4.21 10^6/uL (3.5-6.1) 10/05/17 09:10 Hgb 12.5 g/dL (14.0-18.0) L 10/05/17 09:10 Hct 37.2 % (42.0-52.0) L 10/05/17 09:10 MCV 88.4 fl (80.0-105.0) 10/05/17 09:10 MCH 29.7 pg (25.0-35.0) 10/05/17 09:10 MCHC 33.6 g/dl (31.0-37.0) 10/05/17 09:10 RDW 15.2 % (11.5-14.5) H 10/05/17 09:10 Plt Count 216 10^3/uL (120.0-450.0) 10/05/17 09:10 MPV 9.0 fl (7.0-11.0) 10/05/17 09:10 Gran % 50.7 % (50.0-68.0) 10/05/17 09:10 Lymph % (Auto) 28.4 % (22.0-35.0) 10/05/17 09:10 Morris % (Auto) 14.4 % (1.0-6.0) H 10/05/17 09:10 Eos % (Auto) 6.3 % (1.5-5.0) H 10/05/17 09:10 Baso % (Auto) 0.2 % (0.0-3.0) 10/05/17 09:10 Gran # 2.24 (1.4-6.5) 10/05/17 09:10 Lymph # (Auto) 1.3 (1.2-3.4) 10/05/17 09:10 Morris # (Auto) 0.6 (0.1-0.6) 10/05/17 09:10 Eos # (Auto) 0.3 (0.0-0.7) 10/05/17 09:10 Baso # (Auto) 0.01 K/mm3 (0.0-2.0) 10/05/17 09:10 PT 11.1 SECONDS (9.4-12.5) 10/03/17 05:35 INR 0.97 (0.93-1.08) 10/03/17 05:35 APTT 27.8 Seconds (25.1-36.5) 10/03/17 05:35 D-Dimer, Quantitative 230 ng/mL (0-243) 10/03/17 05:30 Sodium 144 mmol/L (132-148) 10/05/17 09:10 Potassium 3.9 mmol/L (3.6-5.0) 10/05/17 09:10 Chloride 106 mmol/L (98-107) 10/05/17 09:10 Carbon Dioxide 24 mmol/L (21-33) 10/05/17 09:10 Anion Gap 18 (10-20) 10/05/17 09:10 BUN 17 mg/dL (7-21) 10/05/17 09:10 Creatinine 0.8 mg/dl (0.8-1.5) 10/05/17 09:10 Est GFR ( Amer) > 60 10/05/17 09:10 Est GFR (Non-Af Amer) > 60 10/05/17 09:10 Random Glucose 100 mg/dL (70-110) 10/05/17 09:10 Hemoglobin A1c 5.9 % (4.2-6.5) 10/03/17 09:00 Calcium 9.5 mg/dL (8.4-10.5) 10/05/17 09:10 Total Bilirubin 0.2 mg/dL (0.2-1.3) 10/05/17 09:10 AST 25 U/L (17-59) 10/05/17 09:10 ALT 53 U/L (7-56) 10/05/17 09:10 Alkaline Phosphatase 48 U/L (38-126) 10/05/17 09:10 Lactate Dehydrogenase 376 U/L (333-699) 10/03/17 05:35 Total Creatine Kinase 135 U/L (35-230) 10/03/17 05:35 Troponin I 0.02 ng/mL D 10/03/17 18:05 Total Protein 6.9 g/dL (5.8-8.3) 10/05/17 09:10 Albumin 4.0 g/dL (3.0-4.8) 10/05/17 09:10 Globulin 2.9 gm/dL 10/05/17 09:10 Albumin/Globulin Ratio 1.4 (1.1-1.8) 10/05/17 09:10 Triglycerides 58 mg/dL (35-160) 10/03/17 05:30 Cholesterol 171 mg/dL (130-200) 10/03/17 05:30 LDL Cholesterol Direct 94 mg/dL (0-129) 10/03/17 05:30 HDL Cholesterol 51 mg/dL (29-60) 10/03/17 05:30 Procalcitonin 0.06 NG/ML (0.19-0.49) L 10/03/17 09:00 Urine Color Yellow (YELLOW) 10/03/17 05:30 Urine Appearance Clear (CLEAR) 10/03/17 05:30 Urine pH 7.5 (4.7-8.0) 10/03/17 05:30 Ur Specific [place] 1.015 (1.005-1.035) 10/03/17 05:30 Urine Protein Negative mg/dL (<30 mg/dL) 10/03/17 05:30 Urine Glucose (UA) Negative mg/dL (NEGATIVE) 10/03/17 05:30 Urine Ketones Negative mg/dL (NEGATIVE) 10/03/17 05:30 Urine Blood Small (NEGATIVE) H 10/03/17 05:30 Urine Nitrate Negative (NEGATIVE) 10/03/17 05:30 Urine Bilirubin Negative (NEGATIVE) 10/03/17 05:30 Urine Urobilinogen 0.2 E.U./dL (<1 E.U./dL) 10/03/17 05:30 Ur Leukocyte Esterase Negative Shreyas/uL (NEGATIVE) 10/03/17 05:30 Urine RBC 2 - 5 /hpf (0-2) 10/03/17 05:30 Urine WBC 0 - 2 /hpf (0-6) 10/03/17 05:30 Ur Epithelial Cells 1 - 3 /hpf (0-5) 10/03/17 05:30 Urine Bacteria Few (NEG) 10/03/17 05:30 Urine Opiates Screen Negative (NEGATIVE) 10/03/17 05:30 Urine Methadone Screen Negative (NEGATIVE) 10/03/17 05:30 Ur Barbiturates Screen Negative (NEGATIVE) 10/03/17 05:30 Ur Phencyclidine Scrn Negative (NEGATIVE) 10/03/17 05:30 Ur Amphetamines Screen Negative (NEGATIVE) 10/03/17 05:30 U Benzodiazepines Scrn Negative (NEGATIVE) 10/03/17 05:30 U Oth Cocaine Metabols Negative (NEGATIVE) 10/03/17 05:30 U Cannabinoids Screen Negative (NEGATIVE) 10/03/17 05:30 Influenza Typ A,B (EIA) Negative for flu a/b (NEGATIVE) 10/03/17 06:00 Attending/Attestation - Attestation I have personally seen and examined this patient.: Yes I have fully participated in the care of the patient.: Yes I have reviewed all pertinent clinical information, including history, physical exam and plan: Yes Notes (Text): 10/05/17 57 year old old male with past medical history of hypertension and prior smoking history who presented with complaint of chest pain. Serial cardiac enzymes were negative and ACS was ruled out. Echocardiogram was obtained and reviewed by consulting hr professional. Overall patient's symptoms improved. He is discharged home to follow up with pmd. Counselled on smoking abstinence. Ashlyn Ruvalcaba MD Hospitalist.
--- NOTE | 2017-10-05 19:35 | CARD ---
APPROVED REPORT EKG Measurement Heart [id number] [id number] <Conclusion> Sinus tachycardia Possible Left atrial enlargement Borderline ECG
--- NOTE | 2017-10-06 09:35 | CARD ---
APPROVED REPORT EXAM: Two-dimensional and M-mode echocardiogram with Doppler and color Doppler. Other Information Quality : GoodRhythm : INDICATION Chest Pain 2D DIMENSIONS Left Atrium (2D)3.6 (1.6-4.0cm)IVSd1.1 (0.7-1.1cm) LVDd4.7 (3.9-5.9cm)PWd1.1 (0.7-1.1cm) LVDs3.3 (2.5-4.0cm)FS (%) 29.7 % LVEF (%)56.0 (>50%) M-Mode DIMENSIONS Aortic Root3.10 (2.2-3.7cm)Aortic Cusp Exc.2.40 (1.5-2.0cm) Aortic Valve AoV Peak Kniniaao948.0cm/s Mitral Valve MV E Mhtzaars03.3cm/sMV A Voxsgknr76.6cm/sE/A ratio0.8 TDI E/Lateral E'0.0E/Medial E'0.0 Tricuspid Valve TR Peak Obfubglr140gs/sRAP [id number] Peak Gr.25mmHg [id number] LEFT VENTRICLE The left ventricle is normal size. There is normal left ventricular wall thickness. The left ventricular function is normal. The left ventricular ejection fraction is within the normal range. There is normal LV segmental wall motion. RIGHT VENTRICLE The right ventricle is normal size. ATRIA The left atrium size is normal. The right atrium size is normal. The interatrial septum is intact with no evidence for an atrial septal defect. AORTIC VALVE The aortic valve is normal in structure. MITRAL VALVE The mitral valve is normal in structure. TRICUSPID VALVE The tricuspid valve is normal in structure. There is trace tricuspid regurgitation. GREAT VESSELS The aortic root is normal in size. PERICARDIAL EFFUSION There is no pericardial effusion. <Conclusion> The left ventricle is normal size. There is normal left ventricular wall thickness. The left ventricular function is normal.
== END 2017-10-05 17:45 | disposition home or self-care (01) ==
LOC: ED 05:32 → ERH 07:50 → 3RSO 20:55
PROVIDERS: ADMIT Internal Medicine; ATTEND Internal Medicine
DX: R07.89 Other chest pain (principal); I10 Essential (primary) hypertension; J40 Bronchitis, not specified as acute or chronic; K21.9 Gastro-esophageal reflux disease without esophagitis; Z82.49 Family history of ischemic heart disease and other diseases of the circulatory system; Z83.3 Family history of diabetes mellitus; Z87.891 Personal history of nicotine dependence; Z90.49 Acquired absence of other specified parts of digestive tract; R65.10 Systemic inflammatory response syndrome (SIRS) of non-infectious origin without acute organ dysfunction
CPT/HCPCS: 36415; 71045; 71046; 80053; 80061; 80324; 80345; 80346; 80349; 80353; 80358; 80361; 81001; 82550; 83036; 83615; 83992; 84145; 84484; 85025; 85378; 85610; 85730; 87040; 87804; 93005; 93306; 94640; 94760; 96360; 96365; 96374; 99285; G0378; J1885; J7040